=== PATIENT | male | born 1965 | race Hispanic/Latino ===

== ENCOUNTER 2017-01-05 03:47 | Inpatient (IN) | payer MEDICAID, OTHER ==
[2017-01-05 03:48] VITALS: BMI 26.6
--- NOTE | 2017-01-05 04:13 | C.PDOC ---
History Of Present Illness 51 year old male who presents to the ER requesting heroin detox; last use was 2 hours ago. Denies SI, HI, or physical complaints. Time Seen by Provider: 01/05/17 04:13 Chief Complaint (Nursing): Substance Abuse History Per: Patient History/Exam Limitations: no limitations Onset/Duration Of Symptoms: Hrs Current Symptoms Are (Timing): Still Present Suicide/Self Injury Attempted (Context): None Modifying Factor(s): Narcotics Severity: None Pain Scale Rating Of: 0 Associated Symptoms: denies: Depression, Suicidal Thoughts, Suicidal Plan Involuntary Hold By: None Recent travel outside of the [place]: No Past Medical History Reviewed: Historical Data, Nursing Documentation, Vital Signs Vital Signs: Last Vital Signs Temp 97.9 F 01/05/17 03:56 Pulse 102 H 01/05/17 03:56 Resp 20 01/05/17 03:56 BP 110/75 01/05/17 03:56 Pulse Ox 95 01/05/17 04:45 - Medical History PMH: Depression, Hepatitis Surgical History: No Surg Hx - [facility] DETOXIFICATION SERVICES FOR SUBSTANCE ABUSE TREATMENT (07/27/15) Family History: States: No Known Family Hx - Social History Hx Tobacco Use: Yes Hx Alcohol Use: Yes Hx Substance Use: Yes (HEROIN) - Immunization History Hx Tetanus Toxoid Vaccination: No Hx Influenza Vaccination: No Hx Pneumococcal Vaccination: No Review Of Systems Constitutional: Negative for: Fever, Chills Gastrointestinal: Negative for: Nausea, Vomiting, Diarrhea Psych: Negative for: Suicidal ideation Physical Exam - Physical Exam Appears: Non-toxic Skin: Warm, Dry Oral Mucosa: Moist Chest: Symmetrical, No Tenderness Cardiovascular: Rhythm Regular, No Murmur Respiratory: No Rales, No Rhonchi, No Wheezing Gastrointestinal/Abdominal: Soft, No Tenderness Neurological/Psych: Oriented x3 ED Course And Treatment - Laboratory Results Result Diagrams: 01/05/17 04:26 01/05/17 04:26 O2 Sat by Pulse Oximetry: 95 (Room air) Pulse Ox Interpretation: Normal Progress Note: Blood work and urinalysis ordered. Disposition Discussed With : Laura Maurer Comment: accepted the pt on her service and took over the care at 6AM Doctor Will See Patient In The: Hospital Counseled Patient/Family Regarding: Studies Performed, Diagnosis - Disposition Disposition: HOSPITALIZED Disposition Time: 04:13 Condition: FAIR Forms: shoutr (Italian) - POA Present On Arrival: None - Clinical Impression Clinical Impression: Drug abuse, Drug dependence - Scribe Statement The provider has reviewed the documentation as recorded by the Scribe Yuri Riley All medical record entries made by the Scribe were at my direction and personally dictated by me. I have reviewed the chart and agree that the record accurately reflects my personal performance of the history, physical exam, medical decision making, and the department course for this patient. I have also personally directed, reviewed, and agree with the discharge instructions and disposition. Decision To Admit - Pt Status Changed To: Hospital Disposition Of: Inpatient - Admit Certification Admit to Inpatient:: After my assessment, the patient will require hospitalization for at least two midnights. This is because of the severity of symptoms shown, intensity of services needed, and/or the medical risk in this patient being treated as an outpatient. - InPatient: Physician Admission Certification: I certify that this patient requires 2 or more midnights of care for the following reason:: After my assessment, the patient will require hospitalization for at least two midnights. This is because of the severity of symptoms shown, intensity of services needed, and/or the medical risk in this patient being treated as an outpatient. - . Bed Request Type: Psychiatry Admitting Physician: Laura Maurer Patient Diagnosis: Drug abuse, Drug dependence, Depression
[2017-01-05 04:31] LABS: BASO # 0.2 K/uL (0.0-0.2); BASO % 1.7 % (0.0-2.0); EOS % 0.3 % (0.0-4.0); HEMATOCRIT 42.3 % (35.0-51.0); LYMPH # 1.4 K/uL (1.0-4.3); LYMPH % 11.1 % (20.0-40.0); MEAN CELL VOLUME 88.1 fL (80.0-94.0); MEAN CORPUSCULAR HEMOGLOBIN 30.1 pg (27.0-31.0); MEAN CORPUSCULAR HGB CONC 34.1 g/dL (33.0-37.0); MEAN PLATELET VOLUME 7.1 fL (7.2-11.7); MONO # 0.9 K/uL (0.0-0.8); MONO % 7.1 % (0.0-10.0); WHITE BLOOD COUNT 12.3 K/uL (4.8-10.8)
[2017-01-05 04:47] LABS: CHLORIDE 103 mmol/L (98-107); POTASSIUM 4.1 mmol/L (3.6-5.2); SODIUM 141 mmol/L (132-148)
[2017-01-05 04:49] LABS: AST/SGOT 33 U/L (17-59); BILIRUBIN,TOTAL 0.9 mg/dL (0.2-1.3); CARBON DIOXIDE 23 mmol/L (22-30); GFR AFRICAN-AMERICAN 46
[2017-01-05 04:50] LABS: ALKALINE PHOSPHATASE 81 U/L (38-126); ALT/SGPT 28 U/L (21-72); BLOOD UREA NITROGEN 13 mg/dL (9-20); CALCIUM 9.2 mg/dl (8.6-10.4); GLUCOSE,RANDOM 126 mg/dL (75-110); TOTAL PROTEIN 8.5 g/dL (6.3-8.3)
[2017-01-05 04:51] LABS: ALCOHOL SERUM < 10 mg/dl (0-10)
[2017-01-05 05:58] LABS: RBC URINE 2 /hpf (0-3); URINE BILIRUBIN NEGATIVE (NEGATIVE); URINE BLOOD NEGATIVE (NEGATIVE); URINE COLOR Yellow (YELLOW); URINE GLUCOSE (UA) 1+ mg/dL (Normal); URINE HYALINE CAST 0-2 /lpf (0-2); URINE KETONE NEGATIVE (NEGATIVE); URINE LEUKOCYTE ESTERASE NEG Leu/uL (Negative); URINE PROTEIN 1+ mg/dL (NEGATIVE); URINE UROBILINOGEN NORMAL mg/dL (0.2-1.0); WBC URINE 3 /hpf (0-5)
[2017-01-05 06:29] VITALS: O2SAT 96
--- NOTE | 2017-01-05 08:06 | PCM.BM ---
<Leticia Torres - Last Filed: 01/05/17 08:03> Treatment Plan Problems - Problems identified on initial assessmt Depression Date Initiated: 01/05/17 Time Initiated: 08:04 Assessment reference: NA Status: Active Opiates Abuse Date Initiated: 01/05/17 Time Initiated: 08:05 Assessment reference: NA Status: Active Treatment assets and liabiliti Patient Assests: adapts well, cooperative, ADL independent, physically healthy, negotiates basic needs, cognitively intact Patient Liabilities: financial problems, relationship conflicts, substance abuse (Heroin and Cocaine Abuse) - Milieu Protocol Maintain good personal hygiene: daily Encourage regular showers, daily Remind patient to perform daily oral care Maintain personal safety: every shift Educate patient to report safety concerns to staff, every shift Monitor environment for contraband/sharps Medication safety: Monitor for expected outcome, potential side effects: every shift, Assess barriers to learning: every shift, Assess readiness for medication education: every shift <Santa Paige - Last Filed: 01/05/17 10:38> Family Contact Family involvement: Family/SO is involved Family contact: Patient declines to allow family contact at present - Goals for Treatment Patient goals for treatment: "I need an outpatient program." Discharge/Continuing Care - Education Needs Education Needs: Patient Medication, Patient Coping Skills - Discharge Discharge Criteria: Tolerates medication w/o severe side effects, Free of Suicidal thoughts, Reduction of target symptoms Discharge to:: Home ("I need to address my depression.") <Michele Stratton - Last Filed: 01/05/17 12:46> - Diagnosis (1) Depression Status: Acute Interventions: 01/05/17 12:45 * Assess/adjust medications daily and /or as needed * See patient on an individual basis 7x/week to assess symptoms of depression * Monitor for side effects & effectiveness of medications * (2) Opiate dependence Status: Acute Interventions: 01/05/17 12:46 * Assess 7x/week regarding severity of withdrawal * Educate regarding risks, benefits, side effects and alternatives of medications * Use Motivational Interviewing for abstinence * Use CBT for relapse prevention * Medication management for withdrawal symptoms * Encourage medication assisted treatment *
--- NOTE | 2017-01-05 11:08 | PCM.PSYCH ---
Initial Psychiatric Evaluation - Initial Psychiatric Evaluation Type of Admission: Voluntary Legal Status: Capacity Chief Complaint (in patient's own words): "I was depressed" History of Present Illness and Precipitating Events: The patient is seen, chart reviewed and case discussed. He said 51-year-old male, single with 2 adult daughters off the [employer], lives with his aunt. He says he may or may not go back to his aunt after discharge. The patient is here for depression and he had suicidal ideation on admission. He claims that he even cut himself with anger twice recently. He has seemingly superficial scars on his left wrist. He reports depression for several months but got worse the last 2 months since he broke up with his girlfriend. Of note, the girlfriend was 18 years old and he claims she cheated on him with his [id number]. The patient also admits to using heroin, 3 bags IV, and cocaine on and off, also IV. He says he was depressed and resumed heroin recently after 16 months of sobriety. He denies alcohol but used cigarettes 1 pack per day, Xanax regularly and marijuana rarely. Past psych history: One admission also in [facility]. No suicide attempts Family psych history: Denies Medical history: Denies Current Medications: Active Medications Generic Name Dose Route Start Last Admin Trade Name Freq PRN Reason Stop Dose Admin Escitalopram Oxalate 10 mg 01/05/17 10:45 Lexapro PO DAILY YULY Gabapentin 300 mg 01/05/17 10:45 Neurontin PO BID YULY Hydroxyzine HCl 50 mg 01/05/17 10:38 Atarax PO Q6H PRN Anxiety Ibuprofen 600 mg 01/05/17 10:38 Motrin Tab PO Q6H PRN Pain, moderate (4-7) Pneumococcal Polyvalent Vaccine 0.5 ml 01/07/17 10:00 Pneumovax 23 Vaccine IM 01/07/17 10:01 .ONCE ONE Trazodone HCl 100 mg 01/05/17 10:38 Desyrel PO HS PRN Insomnia Past Psychiatric History - Past Psychiatric History Previous Treatment History: Inpatient Pertinent Medical Hx (Current Medical&Sleep Prob, Allergies): Allergies Allergy/AdvReac Type Severity Reaction Status Date / Time FISH Allergy Verified 07/27/15 12:02 Penicillins Allergy Verified 07/27/15 06:57 No Known Home Med 07/27/15 Review of Systems - Neurological Neurological: UNREMARKABLE - Psychiatric Psychiatric: Abnormal Sleep Pattern, Anhedonia, Anxiety, Depression, Irritability, Suicidal Ideation (no plans or intentions). absent: Hallucinations, Homicidal Ideation, Paranoia Mental Status Examination - Personal Presentation Personal Presentation: Looks older than stated age - Affect Affect: Constricted - Motor Activity Motor Activity: Calm - Reliability in Providing Information Reliability in Providing Information: Good - Speech Speech: Organized - Mood Mood: Depressed, Anxious - Formal Thought Process Formal Thought Process: No Impairment - Cognitive Functions Orientation: Person, Place, Situation, Time Sensorium: Alert Attention/Concentration: Attentive Estimate of Intelligence: Average Judgement: Intact, as evidence by: Insight regarding need for hospitalization Memory: Recent intact, as evidence by: Ability to recall events of the day, Remote intact, as evidenced by: Abilit to recall sig. life events - Risk Risk: Withdrawal, Diminished functioning - Strength & Assets Inventory Strength & Assets Inventory: Family support, Employment history, Cooperative - Limitations Limitations: Living alone DSM 5 DX - DSM 5 DSM 5 Diagnosis: Major depressive d/o - single, severe, without psychosis Opioid use d/o, moderate Cocaine use d/o, moderate Tobacco use d/o, severe - Recommended/Plan of Treatment Treatment Recommendations and Plan of Treatment: Depression: - Lexapro - Attend groups and activities - Supportive tx and CBT Opioids: - Monitor sxs - Methadone detox if needed - As needed meds - Support and psychoed - OK and CBT for abstinence Cocaine: - Same as opioids - Gabapentin for wdw sxs Anxiety: - Gabapentin - CBT and relax. 34 min Projected ELOS: 5 days Prognosis: Good with treatment Discharge Plan and Discharge Criteria: No severe dep sxs Refer to IOP or outpty tx - Smoking Cessation Smoking Cessation Initiated: Yes
[2017-01-05] MEDS ORDERED: Aluminum Hydroxide/Magnesium Hydroxide Susp (30 mL) PO PRN (12:31)
[2017-01-06 08:11] VITALS: BP 157/97; PULSE 77; RESP 18; TEMP 98.1
--- NOTE | 2017-01-06 14:14 | PCM.PYCHPN ---
Psychiatric Progress Note - Psychiatric Progress Note Patient seen today, length of contact: 17 min Patient Chief Complaint: "I was depressed" Problems Identified/Issues Discussed: The pt is seen, chart reviewed, case discussed with staff. The pt missed methadone tx yesterday but he was sleeping and he got it this morning. He has some wdw sxs. He is given support and KS. Somewhat oppositional and rigid. He refused his lexapro for instance, saying he doesn;t need it. After care discussed, support and psychoeducation given Denies SI, HI and AVH/del. He seesm to act like he is here only for detox Medication Change: Yes Medical Record Reviewed: Yes Mental Status Examination - Cognitive Function Orientation: Person, Place, Situation, Time Memory: Intact Attention: WNL Concentration: WNL Association: WNL Fund of Knowledge: [facility] Decription of patient's judgement and insights: Reasonable - Mood Mood: Neutral Additional comments: Agitated - Affect Affect: Constricted - Speech Speech: Appropriate - Formal Thought Process Formal Thought Process: No Impairment - Suicidal Ideation Suicidal Ideation: No - Homicidal Ideation Homicidal Ideation: No Goal/Treatment Plan - Goal/Treatment Plan Need for Continued Stay: Discharge may exacerbated symptoms, Severe functional impairment Progress Toward Problem(s) and Goals/Treatment Plan: Methadone detox started, 15 mg today Lexapro for depression - risks explained As needed meds and vitamins Attend groups and activities KS for abstinence and CBT for relapse prevention Support and psychoeducation Consider and encourage MAT Refer to after care.
--- NOTE | 2017-01-06 14:57 | PCM.PYCHDC ---
Mental Status Examination - Mental Status Examination Orientation: Person, Place, Situation, Time Memory: Intact Mood: Anxious Affect: Constricted Speech: Appropriate Attention: WNL Concentration: Poor Association: WNL Fund of Knowledge: WNL Formal Thought Process: No Impairment Suicidal Ideation: No Current Homicidal Ideation?: No Discharge Summary - Discharge Note Consultations:: List each consultation separately and include: 1. Reason for request. 2. Findings. 3. Follow-up Summary of Hospital Course include:: 1. Description of specific treatment plan utilized for patients during their course of treatmen. 2. Summarize the time- course for resolution of acute symptoms and/or regressed behaviors. 3. Describe issues identified and worked on during hospitalization. 4. Describe medication utilized. 5. Describe medical problems identified and treated. 6. Reassessment of suicide risk Summary of Hospital Course: The patient is seen, chart reviewed and case discussed. He said 51-year-old male, single with 2 adult daughters off the [employer], lives with his aunt. He says he may or may not go back to his aunt after discharge. The patient is here for depression and he had suicidal ideation on admission. He claims that he even cut himself with anger twice recently. He has seemingly superficial scars on his left wrist. He reports depression for several months but got worse the last 2 months since he broke up with his girlfriend. Of note, the girlfriend was 18 years old and he claims she cheated on him with his [id number]. The patient also admits to using heroin, 3 bags IV, and cocaine on and off, also IV. He says he was depressed and resumed heroin recently after 16 months of sobriety. He denies alcohol but used cigarettes 1 pack per day, Xanax regularly and marijuana rarely. Past psych history: One admission also in [facility]. No suicide attempts Family psych history: Denies Medical history: Denies Hospital course: The pt was admitted and started on treatment with psychotherapy, support, psychoeducation and medications. DE and CBT used. The pt did not attend groups and activities, or milieu therapy b/c he was mostly in his room. All the risks and benefits of medications are discussed and the patient understood and agreed. However, he ended up not taking them, but methadone. He was irate and demanding and at times intimidating. He took his first dose of methadone today as he has started to withdraw today, when he was fine yesterday. later on he told our nurses he needs to leave tomorrow, but then he approached again and asked to leave today. Risks of leaving early discussed, incl. OD and even . He still left - Final Diagnosis (DSM 5) Condition upon Discharge: FAIR DSM 5: Major depressive d/o - single, severe, without psychosis Opioid use d/o, moderate Cocaine use d/o, moderate Tobacco use d/o, severe Personality d/o - unspecified Disposition: AGAINST MEDICAL ADVICE Follow-up Treatment Plan: Use relapse prevention skills Return to ER or call 911 if suicidal, homicidal or symptoms relapse. Stay away from stress, alcohol and drugs. Consider going to a methadone or suboxone clinic See primary doctor once a year. - Smoking Cessation Smoking Cessation Medication prescribed: No - Antipsychotic Medications Pt discharged on 2 or more routine antipsychotic medications: No
[2017-01-07] MEDS ORDERED: Pneumococcal 23-Valent Vaccine IM ONE (10:00)
== END 2017-01-06 15:00 | disposition left against medical advice (07) | DRG 885 ==
LOC: C.ER 03:47 → C.5E 05:54
PROVIDERS: ADMIT Psychiatry & Neurology Psychiatry; ATTEND Psychiatry & Neurology Psychiatry
PROC: GZ3ZZZZ Medication Management (ICD-10-PCS; principal; 2017-01-05)
PROC: GZHZZZZ Group Psychotherapy (ICD-10-PCS; 2017-01-05)
PROC: GZ56ZZZ Individual Psychotherapy, Supportive (ICD-10-PCS; 2017-01-05)
PROC: HZ89ZZZ Medication Management for Substance Abuse Treatment, Other Replacement Medication (ICD-10-PCS; 2017-01-05)
PROC: HZ59ZZZ Individual Psychotherapy for Substance Abuse Treatment, Supportive (ICD-10-PCS; 2017-01-05)
DX: F32.2 Major depressive disorder, single episode, severe without psychotic features (principal); R45.851 Suicidal ideations; F11.20 Opioid dependence, uncomplicated; F41.9 Anxiety disorder, unspecified; F14.90 Cocaine use, unspecified, uncomplicated; F17.210 Nicotine dependence, cigarettes, uncomplicated; Z91.5 Personal history of self-harm